=== PATIENT | female | born 1955 | race African-American/Black ===

== ENCOUNTER 2020-11-15 10:42 | Inpatient (IN) ==
[2020-11-15 11:43] LABS: Bilirubin,Urine Negative (Negative); Blood, Urine Small mg/dL (Negative); Glucose,Urine (UA) Negative (Negative); Ketones,Urine Negative (Negative); Mucus,Urine Moderate /LPF (Occasional); Nitrite,Urine Negative (Negative); Protein,Urine 100 MG/DL; RBC,Urine 1 /HPF (0-4); Squamous Epithelial Cell,Urine Occasional /HPF (0-10); Urine Appearance CLEAR (Clear); Urine Color Amber (Yellow); WBC,Urine 1 /HPF (0-6)
[2020-11-15 11:53] LABS: Basophils # 0.1 10*3/uL (0.0-0.2); Basophils % 0.9 % (0.0-0.8); Eosinophils # 0.5 10*3/uL (0.0-0.87); Eosinophils % 6.7 % (0.00-10.9); Hematocrit 36.6 VOL% (35.7-47.0); Hemoglobin 12.1 GM/DL (12.0-16.0); Immature Granulocytes % 0.7 %; Immature Granulocytes Absolute 0.05 #; Lymphocytes % 14.8 % (21.3-54.2); Mean Corpuscular HGB Conc 33.1 GM/DL (32-36); Mean Corpuscular Volume 100.8 FL (87-102); Mean Platelet Volume 10.6 FL (9.6-12.0); Neutrophils % 68.9 % (38.7-73.9); Platelet Count 222 T/CUMM (130-400); Red Blood Count 3.63 MC/CUMM (3.8-5.5); Red Cell Distribution Width 13.5 % (9.3-17.3); White Blood Count 6.9 T/CUMM (4-12)
[2020-11-15 12:42] LABS: Albumin 3.5 G/DL (3.4-5.0); Bilirubin,Total 0.7 MG/DL (0.2-1.0); Calcium 8.9 MG/DL (8.5-10.1); Osmolality,Calculated 276.5 MOS/KG (273-304); Potassium 3.5 MMOL/L (3.5-5.1); Total Protein 7.8 G/DL (5.0-7.5)
[2020-11-15] MEDS ORDERED: ACETAMINOPHEN 325 MG TABLET PO PRN (14:46)
[2020-11-15] MEDS ORDERED: ONDANSETRON 4 MG/2 ML VIAL IV PRN (14:46)
[2020-11-15] MEDS: DEXTROSE 5% NACL 0.45% 1,000 ML IV SCH ×2 (15:14→23:33)
[2020-11-15] MEDS: cefOXitin 2,000 MG in SYRINGE 1 EACH IV SCH ×2 (16:52→21:14)
[2020-11-16] MEDS: cefOXitin 2,000 MG in SYRINGE 1 EACH IV SCH ×4 (03:34→21:21)
[2020-11-16 05:35] LABS: Basophils # 0.1 10*3/uL (0.0-0.2); Basophils % 1.3 % (0.0-0.8); Eosinophils # 0.5 10*3/uL (0.0-0.87); Hematocrit 31.7 VOL% (35.7-47.0); Hemoglobin 10.8 GM/DL (12.0-16.0); Immature Granulocytes % 0.4 %; Immature Granulocytes Absolute 0.02 #; Lymphocytes # 1.4 10*3/uL (1.4-4.0); Mean Corpuscular HGB Conc 34.1 GM/DL (32-36); Mean Corpuscular Volume 99.1 FL (87-102); Monocytes % 10.9 % (1.7-12.7); Neutrophils % 46.4 % (38.7-73.9); Platelet Count 186 T/CUMM (130-400); Red Cell Distribution Width 13.3 % (9.3-17.3); White Blood Count 4.5 T/CUMM (4-12)
[2020-11-16 06:00] LABS: Bilirubin,Total 1.1 MG/DL (0.2-1.0); Calcium 8.1 MG/DL (8.5-10.1)
[2020-11-16 06:01] LABS: Albumin 2.7 G/DL (3.4-5.0); Osmolality,Calculated 280.1 MOS/KG (273-304); Potassium 2.8 MMOL/L (3.5-5.1); Total Protein 6.2 G/DL (5.0-7.5)
[2020-11-16] MEDS: DEXTROSE 5% NACL 0.45% 1,000 ML IV SCH ×3 (07:45→21:48)
[2020-11-16] MEDS: PANTOPRAZOLE 40 MG TABLET PO SCH (08:11)
[2020-11-16] MEDS: ENOXAPARIN 40 MG/0.4 ML SYRINGE SUBCUT SCH (08:43)
[2020-11-16] MEDS: POTASSIUM CHLORIDE RIDER 10 MEQ in PREMIX 1 EACH IV SCH ×4 (10:18→13:43)
[2020-11-17] MEDS: POTASSIUM CHLORIDE RIDER 10 MEQ in PREMIX 1 EACH IV PRN ×5 (00:06→04:24)
[2020-11-17] MEDS: cefOXitin 2,000 MG in SYRINGE 1 EACH IV SCH ×4 (04:24→23:02)
[2020-11-17] MEDS: DEXTROSE 5% NACL 0.45% 1,000 ML IV SCH ×6 (06:57→23:02)
[2020-11-17 08:05] LABS: Osmolality,Calculated 267.8 MOS/KG (273-304); Potassium 3.5 MMOL/L (3.5-5.1)
[2020-11-17] MEDS: ENOXAPARIN 40 MG/0.4 ML SYRINGE SUBCUT SCH (08:17)
[2020-11-17] MEDS: PANTOPRAZOLE 40 MG TABLET PO SCH (08:17)
[2020-11-18] MEDS: cefOXitin 2,000 MG in SYRINGE 1 EACH IV SCH (04:27)
[2020-11-18] MEDS: DEXTROSE 5% NACL 0.45% 1,000 ML IV SCH ×3 (06:15→22:16)
[2020-11-18] MEDS: PANTOPRAZOLE 40 MG TABLET PO SCH (08:58)
[2020-11-18] MEDS: ENOXAPARIN 40 MG/0.4 ML SYRINGE SUBCUT SCH (08:58)
[2020-11-18 09:30] LABS: Calcium 8.2 MG/DL (8.5-10.1); Osmolality,Calculated 270.7 MOS/KG (273-304); Potassium 3.5 MMOL/L (3.5-5.1)
[2020-11-18 09:31] LABS: Calcium 8.2 MG/DL (8.5-10.1)
[2020-11-19] MEDS: DEXTROSE 5% NACL 0.45% 1,000 ML IV SCH (07:10)
[2020-11-19] MEDS: ENOXAPARIN 40 MG/0.4 ML SYRINGE SUBCUT SCH (09:12)
[2020-11-19] MEDS: PANTOPRAZOLE 40 MG TABLET PO SCH (09:12)
[2020-11-19 11:49] VITALS: BP 99/57
== END 2020-11-19 14:30 | disposition home or self-care (01) | DRG 389 ==
LOC: EDBD → EDUNIT# → N.ED 10:42 → N.EDINP 14:46 → N.3E 16:06
PROVIDERS: ADMIT Surgery; ATTEND Surgery

== ENCOUNTER 2022-06-14 15:33 | Inpatient (IN) ==
[2022-06-14 17:07] LABS: Basophils % 1.1 % (0.0-0.8); Eosinophils # 0.2 10*3/uL (0.0-0.87); Eosinophils % 6.5 % (0.00-10.9); Hematocrit 35.3 VOL% (35.7-47.0); Hemoglobin 11.9 GM/DL (12.0-16.0); Immature Granulocytes % 0.6 %; Immature Granulocytes Absolute 0.02 #; Lymphocytes # 1.3 10*3/uL (1.4-4.0); Lymphocytes % 36.1 % (21.3-54.2); Mean Corpuscular HGB Conc 33.7 GM/DL (32-36); Mean Corpuscular Volume 93.1 FL (87-102); Mean Platelet Volume 10.9 FL (9.6-12.0); Monocytes # 0.5 10*3/uL (0.11-0.8); Monocytes % 12.7 % (1.7-12.7); Platelet Count 261 T/CUMM (130-400); Red Blood Count 3.79 MC/CUMM (3.8-5.5); Red Cell Distribution Width 15.9 % (9.3-17.3); White Blood Count 3.6 T/CUMM (4-12)
[2022-06-14 17:20] LABS: Albumin 3.7 G/DL (3.4-5.0); Bilirubin,Total 0.6 MG/DL (0.20-1.00); Calcium 8.9 MG/DL (8.5-10.1); Potassium 2.8 MMOL/L (3.5-5.1); Total Protein 7.6 G/DL (6.4-8.2)
[2022-06-14] MEDS ORDERED: POTASSIUM CHLORIDE 20 MEQ TABLET PO STA (17:34)
[2022-06-14] MEDS ORDERED: ACETAMINOPHEN 325 MG TABLET PO PRN (22:30)
[2022-06-14] MEDS ORDERED: ZALEPLON 5 MG CAPSULE PO PRN (22:30)
[2022-06-14] MEDS ORDERED: ONDANSETRON 4 MG/2 ML VIAL IV PRN (22:30)
[2022-06-14] MEDS ORDERED: hydrALAZINE 20 MG/1 ML VIAL IV PRN (22:30)
[2022-06-14] MEDS ORDERED: NICOTINE 21 MG/24 HR PATCH TRANSDERM PRN (22:30)
[2022-06-14] MEDS ORDERED: diphenhydrAMINE CAP 25 MG CAPSULE PO PRN (22:30)
[2022-06-14] MEDS ORDERED: guaiFENesin/DM ER 600-30 MG TABLET PO PRN (22:30)
[2022-06-15] MEDS: DEXT 5% NACL 0.9% KCL 40 MEQ 40 MEQ/1,000 ML BAG IV SCH ×2 (01:02→13:57)
[2022-06-15] MEDS: POTASSIUM CHLORIDE RIDER 10 MEQ/100 ML PREMIX IV SCH ×6 (01:24→09:24)
[2022-06-15] MEDS ORDERED: INFLUENZA VIRUS VACCINE 0.5 ML SYRINGE IM ONE (01:30)
[2022-06-15 05:29] LABS: Basophils # 0.1 10*3/uL (0.0-0.2); Basophils % 1.6 % (0.0-0.8); Eosinophils # 0.3 10*3/uL (0.0-0.87); Eosinophils % 5.8 % (0.00-10.9); Hematocrit 37.1 VOL% (35.7-47.0); Hemoglobin 12.2 GM/DL (12.0-16.0); Immature Granulocytes % 0.2 %; Immature Granulocytes Absolute 0.01 #; Lymphocytes # 1.4 10*3/uL (1.4-4.0); Lymphocytes % 32.9 % (21.3-54.2); Mean Corpuscular HGB Conc 32.9 GM/DL (32-36); Mean Corpuscular Volume 94.9 FL (87-102); Mean Platelet Volume 11.1 FL (9.6-12.0); Monocytes # 0.6 10*3/uL (0.11-0.8); Monocytes % 12.8 % (1.7-12.7); Neutrophils % 46.7 % (38.7-73.9); Platelet Count 238 T/CUMM (130-400); Red Blood Count 3.91 MC/CUMM (3.8-5.5); Red Cell Distribution Width 16.3 % (9.3-17.3); White Blood Count 4.3 T/CUMM (4-12)
[2022-06-15 05:47] LABS: Calcium 9.1 MG/DL (8.5-10.1); Osmolality,Calculated 275.4 MOS/KG (273-304); Potassium 3.8 MMOL/L (3.5-5.1)
[2022-06-15] MEDS: PANTOPRAZOLE 40 MG TABLET PO SCH (09:40)
[2022-06-15] MEDS: HEPARIN 5,000 UNIT/1 ML VIAL SUBCUT SCH ×2 (10:48→20:22)
[2022-06-16] MEDS: DEXT 5% NACL 0.9% KCL 40 MEQ 40 MEQ/1,000 ML BAG IV SCH (01:45)
[2022-06-16] MEDS: HEPARIN 5,000 UNIT/1 ML VIAL SUBCUT SCH (09:11)
[2022-06-16] MEDS: PANTOPRAZOLE 40 MG TABLET PO SCH (09:12)
[2022-06-16 11:22] VITALS: BP 89/50
== END 2022-06-16 13:43 | disposition home or self-care (01) | DRG 641 ==
LOC: N.ED 15:33 → N.3E 22:23 → SUATTDRO 22:23 → N.3E 06-15 00:18
PROVIDERS: ADMIT Hospitalist; ATTEND Internal Medicine